=== PATIENT | male | born 1945 | race Caucasian/White ===

== ENCOUNTER 2018-09-26 06:55 | Day surgery (SDC) | payer MEDICARE ==
[~2018-09-26] VITALS: Ht 167.6 cm; Wt 83.2 kg
[~2018-09-26 06:55] MED LIST: ACIPHEX20 MG PO; ASPIRIN E.C. 8181 MG PO; CALCIUM CITRAT200 MG PO; CENTRUM SILVER1 TA1 PO; CLARITIN10 MG PO; METFORMIN850 MG PO; METOPROLOL100 MG PO; NORVASC5 MG PO; PROVENTIL0.09 MG/A1 IH
[2018-09-26] MEDS ORDERED: PRINIVIL10 MG PO (07:27)
[2018-09-26] MEDS ORDERED: TOPROL XL 50MG50 MG PO (07:27)
[2018-09-26] MEDS ORDERED: GLUCOPHAGE850 MG/TAB PO (07:28)
[2018-09-26] MEDS ORDERED: PROSCAR 5MG5 MG PO (07:29)
[2018-09-26] MEDS ORDERED: LASIX 20MG TABL20 MG PO (07:29)
[2018-09-26] MEDS ORDERED: FLOMAX 0.40.4 MG/CAP PO (07:29)
[2018-09-26] MEDS ORDERED: PERCOCET 325 MG1 TAB PO ×2 (07:31→07:32)
[2018-09-26] MEDS ORDERED: REQUIP3 MG PO (07:32)
[2018-09-26] MEDS ORDERED: PROBIOTIC FORMU1 CAP PO (07:32)
[2018-09-26] MEDS ORDERED: NATURAL POTASS595 MG PO (07:33)
[2018-09-26] MEDS ORDERED: OMEGA-31 SGL PO (07:33)
[2018-09-26] MEDS ORDERED: 00186-0370-20 IH (07:34)
[2018-09-26] MEDS ORDERED: B COMPLEX & B121 TAB PO (07:34)
[2018-09-26 07:35] VITALS: BP 135/72; PULSE 74; TEMP 97.5
[2018-09-26 11:00] VITALS: BP 128/70; PULSE 61; TEMP 97.5
[2018-09-26 11:15] VITALS: BP 118/62; PULSE 62
[2018-09-26 11:30] VITALS: BP 124/65; PULSE 59
[2018-09-26 11:45] VITALS: BP 125/77; PULSE 59
== END 2018-09-26 12:20 | disposition home or self-care (01) ==
LOC: SDCO 06:55 → SURG 09:00 → EDSTATUS 10:30 → SDCO 10:30
DX: K40.90 Unilateral inguinal hernia, without obstruction or gangrene, not specified as recurrent (principal); K42.9 Umbilical hernia without obstruction or gangrene; I10 Essential (primary) hypertension; J44.9 Chronic obstructive pulmonary disease, unspecified; G25.81 Restless legs syndrome; N40.0 Benign prostatic hyperplasia without lower urinary tract symptoms; E11.9 Type 2 diabetes mellitus without complications; F17.210 Nicotine dependence, cigarettes, uncomplicated; I25.10 Atherosclerotic heart disease of native coronary artery without angina pectoris; Z79.84 Long term (current) use of oral hypoglycemic drugs; Z90.49 Acquired absence of other specified parts of digestive tract; Z88.5 Allergy status to narcotic agent; Z82.49 Family history of ischemic heart disease and other diseases of the circulatory system; Z80.9 Family history of malignant neoplasm, unspecified
CPT/HCPCS: C1781; J1885; J2250; J2370; J2405; J2704; J3010; J7030

== ENCOUNTER → 2018-12-23 | Outpatient (CLI) | payer MEDICARE ==
[~2018-12-23] MED LIST changes: +00186-0370-20 IH; +B COMPLEX & B121 TAB PO; +FLOMAX 0.40.4 MG/CAP PO; +GLUCOPHAGE850 MG/TAB PO; +LASIX 20MG TABL20 MG PO; +NATURAL POTASS595 MG PO; +OMEGA-31 SGL PO; +PERCOCET 325 MG1 TAB PO; +PRINIVIL10 MG PO; +PROBIOTIC FORMU1 CAP PO; +PROSCAR 5MG5 MG PO; +REQUIP3 MG PO; +TOPROL XL 50MG50 MG PO
[2018-12-23 08:25] LABS: CALCIUM 9.1 mg/dL (8.4-10.2); CREATININE, serum 0.81 mg/dL (0.66-1.25); POTASSIUM 4.4 mmol/L (3.4-5.0)
[2018-12-24 02:16] LABS: CORTISOL RANDOM 3 ug/dL (3-20)
== END ==
LOC: COL.LAB 07:49
PROVIDERS: Urology
DX: E27.8 Other specified disorders of adrenal gland (principal); R59.0 Localized enlarged lymph nodes

== ENCOUNTER 2019-01-17 08:45 | Day surgery (SDC) | payer MEDICARE ==
[~2019-01-17] VITALS: Ht 167.7 cm; Wt 63.0 kg
[2019-01-17 09:21] VITALS: BP 131/84; PULSE 80; TEMP 98.4
[2019-01-17 10:10] VITALS: BP 134/82; PULSE 78; TEMP 98
== END 2019-01-17 10:30 | disposition home or self-care (01) ==
LOC: COL.CAR 08:45
DX: R55 Syncope and collapse (principal); J44.9 Chronic obstructive pulmonary disease, unspecified; E11.9 Type 2 diabetes mellitus without complications; E78.5 Hyperlipidemia, unspecified; I10 Essential (primary) hypertension; F17.210 Nicotine dependence, cigarettes, uncomplicated; Z88.5 Allergy status to narcotic agent; Z82.49 Family history of ischemic heart disease and other diseases of the circulatory system; Z80.0 Family history of malignant neoplasm of digestive organs; Z81.8 Family history of other mental and behavioral disorders
CPT/HCPCS: 27124; C1764